=== PATIENT | female | born 1945 | race Caucasian/White ===

== ENCOUNTER 2020-02-14 10:40 | Inpatient (IN) | payer MEDICARE, OTHER ==
[2020-02-14] MEDS ORDERED: COZAAR50 MG PO (12:30)
[2020-02-14] MEDS ORDERED: COZAAR100 MG PO (12:30)
[2020-02-14] MEDS ORDERED: ZYRTEC10 MG PO (12:33)
[2020-02-14] MEDS ORDERED: VENTOLIN HFA [SP8 GM (12:33)
[2020-02-14] MEDS ORDERED: ALDACTONE25 MG PO (12:35)
[2020-02-14] MEDS ORDERED: XARELTO20 MG PO (12:35)
[2020-02-14] MEDS ORDERED: ADVAIR 250-501 EAC1 INH (12:36)
[2020-02-14] MEDS ORDERED: SYNTHROID112 MCG PO (12:37)
[2020-02-14] MEDS ORDERED: NASONEX NASAL S17 GM (12:38)
[2020-02-14] MEDS ORDERED: FLOVENT DISKU100 MCG INH (12:39)
[2020-02-14] MEDS ORDERED: COLACE100 MG PO (12:39)
[2020-02-14] MEDS ORDERED: PROPAFENONE HC225 MG (12:39)
[2020-02-14 12:42] VITALS: BP 136/69; BMI 30.1
--- NOTE | 2020-02-14 13:20 | NUR ---
NURSE CALLED EARL ARMSTRONG AND GAVE HER PASSCODE. NURSE EXPLAINED ALL UNIT DETAILS DURING ADMISSION PROCESS PRIOR TO HER LEAVING.
--- NOTE | 2020-02-14 15:49 | NUR ---
PT ARRIVED TO HALF-WAY UNIT PER FAMILY FOR PRIMARY CARE PHYSICIAN. PT IS HAVING AUDITORY AND VISUAL HALLUCINATIONS. PT IS PARANOID THINKING FAMILY IS POISONING HER. DAUGHTER EARL ARMSTRONG GAVE CONSENT. PT WAS A VOLUNTARY ADMISSION. PT IS AMBULATORY. CALM AND COOPERATIVE WITH STAFF. PT CODE NUMBER IS 3701. PS IS ON DROPLET PRECAUTIONS PENDING SARS-19 RESULTS. WILL CONT TO MONITOR.
--- NOTE | 2020-02-14 16:33 | NUR ---
DAUGHTER BROUGHT MORE CLOTHES AND SHOES FOR PT. EXTRA ITEMS WILL BE LOGGED AND PLACED INTO STORAGE. REFER TO BELONGINGS SHEET.
[2020-02-14 19:57] VITALS: BP 163/69
--- NOTE | 2020-02-14 21:58 | NUR ---
B.) PT IS ALERT AND ORIENTED TO SELF AND PLACE. SHE IS CALM AND COOPERATIVE WITH STAFF. SHE IS SELF ISOLATING AT THIS TIME. SHE IS ABLE TO AMBUALTE ON HER OWN WITHOUT ASSIT. I.) PROVIDED PM MEDICATIONS PRESCRIBED. REDIRECT NEEDED. R.) COMPLIANT WITH ALL MEDICATIONS. EASY TO REDIRECT. P.) WILL CONTINUE TO MONITOR.
[2020-02-15 06:27] LABS: BILIRUBIN NEGATIVE (NEGATIVE); GLUCOSE NEGATIVE (NEGATIVE); KETONE NEGATIVE (NEGATIVE); NITRITE NEGATIVE (NEGATIVE); UROBILINOGEN NORMAL (NORMAL)
[2020-02-15 07:02] LABS: BASOPHILS 0.9 % (0-2); EOSINOPHILS 3.9 % (0-7); HEMATOCRIT 37.1 % (36.0-48.0); HEMOGLOBIN 11.9 g/dL (12-16); IMMATURE GRANULOCYTES 0.3 % (0-5); LYMPHOCYTES 55.1 % (15-50); MCH 30.1 pg (26.0-34.0); MCHC 32.1 g/dL (31.0-37.0); MCV 93.7 fL (80.0-100.0); MEAN PLATELET VOLUME 13.9 fL (7.4-10.4); MONOCYTES 13.8 % (2-11); PLATELET COUNT 144 10x3/uL (130-400); RBC 3.96 10x6/uL (4.00-5.40); RDW 14.9 % (11.5-14.5); WBC 3.3 10x3/uL (4.8-10.8)
[2020-02-15 07:53] LABS: CHOL - HDL RATIO 2.7 ratio (2.3-4.1); LDL-HDL RATIO 1.5 ratio (1.5-3.5); THYROID STIMULATING HORMONE 2.55 uIU/mL (0.36-3.74)
[2020-02-15 09:51] VITALS: Wt 72.0 kg
[2020-02-15 10:10] VITALS: BP 123/78
--- NOTE | 2020-02-15 14:05 | NUR ---
The patient has paranoid thoughts, she is conscientious about cleanliness, she thinks everything is dirty and bad even if she sees staff disinfect an area. She doesn't trust anyone. She is interacting with three other patient's today and she tries to be helpful with other patient's. She ambulates independently. Provide prescribed meds. The patient is compliant with meds. She has not mentioned any hallucinations today. She has not shown aggression. Provide prescribed meds. The patient is compliant with meds. Continue POC.
[2020-02-15 20:00] VITALS: BP 188/65
--- NOTE | 2020-02-15 22:28 | NUR ---
B.) PT IS ALERT AND ORIENTED TO SELF AND PLACE. SHE IS RECEIVED IN THE DAYROOM SOCIALIZING WITH PEERS. SHE IS OBSESSIVE AT TIMES ABOUT HER ENVIORNMENT. I.) PROVIDED PM MEDICATIONS PRESCRIBED. REDIRECT NEEDED. R.) COMPLIANT WITH ALL MEDICATIONS. EASY TO REDIRECT. P.) WILL CONTINUE TO MONITOR.
--- NOTE | 2020-02-16 07:39 | NUR ---
The patient is awake and alert, she is pleasant, she continues to have paranoia and she is worried about cleanliness. She ambulates, toilets, and feeds herself. She is interactive with staff and peers. Provide prescribed meds. Monitor her mood and behavior. Continue POC.
[2020-02-16 09:09] VITALS: BP 118/73
--- NOTE | 2020-02-16 09:45 | NUR ---
The patient requested to floss her teeth, she is quite concerned with cleanliness.
--- NOTE | 2020-02-16 11:30 | NUR ---
The patient got me to the side and she told me that she has a lot of problem with constipation and she usually uses a glycerin suppository every morning and about every four days she uses exlax. She says she also has hemorrhoids but says the glycerin suppository helps so she doesn't have to strain. She admits she does not eat any fruit or vegetables. Text Vilma Whitaker and let her be aware, she said to order the glycerin suppositories.
[2020-02-16 20:00] VITALS: BP 144/59
--- NOTE | 2020-02-16 20:01 | NUR ---
RECEIVED IN DAYROOM. SITTING IN A CHAIR WITH PEERS AT HER SIDE. CALM AND COOPERATIVE WITH CARE AND ASSESSMENT. NO SIGNS OF HALLUCINATIONS OR PARANOIA AT THIS TIME. REDIRECT AND REORIENT NEEDED. CONTINUES TO SIT CALMLY IN DAYROOM. CONTINUE PLAN OF CARE.
[2020-02-17 09:01] VITALS: BP 168/65
--- NOTE | 2020-02-17 09:18 | NUR ---
SW SPOKE WITH PT'S DTR EARL AND SHE DECLINED PT CHOICE FORM. PT WILL BE RETURNING TO HER HOME WHEN DISCHARGED.
--- NOTE | 2020-02-17 17:02 | NUR ---
PT SITTING IN DAYROOM WITH PEERS. AWAKE AND ALERT TO PERSON, PLACE, AND TIME. CALM AND COOPERATIVE WITH ASSESSMENT AT THIS TIME. PRESCRIBED MEDS PROVIDED ORDERED. MED COMPLIANT. NO BEHAVIORS NOTED AT THIS TIME. WILL CPOC.
--- NOTE | 2020-02-17 19:42 | NUR ---
RECEIVED IN DAYROOM. SITTING IN A CHAIR WITH PEERS AT HER SIDE. CALM AND COOPERATIVE WITH CARE AND ASSESSMENT. NO SIGNS OF HALLUCINATIONS OR PARANOIA. REDIRECT AND REORIENT NEEDED.CONTINUES TO SIT CALMLY IN DAYROOM. CONTINUE PLAN OF CARE.
[2020-02-17 20:12] VITALS: BP 176/66
[2020-02-18 09:37] VITALS: BP 156/100
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
--- NOTE | 2020-02-18 12:15 | NUR ---
PT SITTING AT DINING TABLE EATING LUNCH WITH PEERS. ASSESSMENT COMPLETED. NO BEHAVIORS NOTED AT THIS TIME. PRESCRIBED MEDS PROVIDED ORDERED. MED COMPLIANT. WILL CPOC.
[2020-02-18 20:43] VITALS: BP 189/65
--- NOTE | 2020-02-18 21:21 | NUR ---
RECEIVED IN DAYROOM. SITTING IN A CHAIR WITH PEERS AT HER SIDE. CALM AND COOPERATIVE WITH CARE AND ASSESSMENT. NO SIGNS OF HALLUCINATIONS. REDIRECT AND REORINET NEEDED. IN BEDROOM GETTING READY FOR BED AT THIS TIME. CONTINUE PLAN OF CARE.
[2020-02-19 09:10] VITALS: BP 140/68
--- NOTE | 2020-02-19 12:00 | NUR ---
RECEIVED IN HALLWAY OUTSIDE OF NURSES STATION. CALM AND COOPERATIVE WITH CARE AND ASSESSMENT. CRYING AT TIMES. DEPRESSED. REDIRECT AND REORIENT NEEDED. EATING AT THIS TIME. CONTINUE PLAN OF CARE.
--- NOTE | 2020-02-19 14:24 | NUR ---
NUTRITION FOLLOW UP: COMMENTS: Patient has been eating okay. PO intake could stand to improve some. Patient has not had a BM recorded since admit and has a history of chronic constipation. Patient is able to feed herself per MD. DIET: Regluar Diet PO INTAKE: 51% avg for last 9 meals WEIGHT: 157 lbs on 02/15 BM: None recorded at this time SIG MEDS: Synthroid, Glycerin, Colace, Spironolactone SIG LABS: No new sig labs RECOMMENDATIONS: -Continue current diet as tolerated -Offer nutritional supplements if po intake avg becomes < 50 % for meals
--- NOTE | 2020-02-19 14:35 | PN ---
PATIENT:SHERI DILL MEDICAL RECORD: [id number] LOCATION:[facility] ADMISSION DATE: 02/14/20 PROGRESS NOTE DATE OF SERVICE: 02/18/2020 SUBJECTIVE: The patient's case was discussed with staff. She has no new complaint. OBJECTIVE: The patient is quite impaired cognitively. She is also showing evidence of a fairly severe dementia. ASSESSMENT AND PLAN: The patient's dose of Lexapro will be increased. Her long-term prognosis is guarded. Supportive and educational interventions were made. TRANSINT:[id number] Voice Confirmation ID: [id number] DOCUMENT ID: [id number] LEN MATUTE MD at 1435 CC: [id number] DICTATION DATE: 02/18/20 1532 SAMPLE FINISHER: 02/18/20 2349 ADM IN [place] [place] [address]
[2020-02-19 20:37] VITALS: BP 147/68
--- NOTE | 2020-02-20 00:32 | NUR ---
B) patient is alert and oriented to person, place and time, calm and cooperative, I) Administered scheduled medications as ordered, monitored for needs and wants R) Mediation compliant, pleasnat and friendly P) Continue plan of care.
--- NOTE | 2020-02-20 08:51 | NUR ---
The patient c/o bilateral knee pain. She rates her pain 8/10. She requests Tylenol, see MAR. The patient is alert and awake, she has poor short term memory and poor insight into her situation. She denies SI or HI, have not noted any hallucinations or delusions at this time. She interacts with staff and other patients. Provide prescribed meds. The patient is compliant with meds. Continue POC.
[2020-02-20 09:22] VITALS: BP 162/64
--- NOTE | 2020-02-20 12:16 | PN ---
PATIENT:SHERI DLIL MEDICAL RECORD: [id number] LOCATION:[facility]112 ADMISSION DATE: 02/14/20 PROGRESS NOTE DATE OF SERVICE: 02/19/2020 SUBJECTIVE: The patient's case was discussed with staff. She has no new complaint. OBJECTIVE: The patient has had no psychotic symptoms. She is calmer and sleeping reasonably well. ASSESSMENT: 1. Dementia. 2. Major depression. PLAN: The patient has shown improvement in her psychotic symptoms. It will take a while for her mood symptoms to improve. Her daughter is making arrangements for her to come and live with her. I anticipate she can be discharged soon. TRANSINT:[id number] Voice Confirmation ID: [id number] DOCUMENT ID: [id number] LEN MATUTE MD at 1216 CC: [id number] DICTATION DATE: 02/19/20 1508 SHOTBLAST OPERATOR: 02/20/20 0025 ADM IN [id number] [place] [address]
[2020-02-20] MEDS ORDERED: LEXAPRO20 MG PO (12:41)
[2020-02-20] MEDS ORDERED: NAMENDA5 MG PO (12:41)
[2020-02-20] MEDS ORDERED: SEROQUEL25 MG PO (12:41)
--- NOTE | 2020-02-20 17:05 | PN ---
PATIENT:SHERI DILL MEDICAL RECORD: [id number] LOCATION:[facility] ADMISSION DATE: 02/14/20 PROGRESS NOTE DATE OF SERVICE: 02/20/2020 SUBJECTIVE: The patient's case was discussed with staff. She has no new complaint. OBJECTIVE: The patient has had no further psychotic symptoms. She has mild symptoms of cognitive impairment, but they are present. She is distressed by the activities that she observes in the day room. She would like to go home. ASSESSMENT: 1. Dementia. 2. Major depression. PLAN: The patient will be transitioned out of the hospital today. Her long-term prognosis is guarded. Both supportive and educational interventions were made. I do not see evidence of dangerousness and follow up will be with her primary care physician. TRANSINT:[id number] Voice Confirmation ID: [id number] DOCUMENT ID: [id number] LEN MATUTE MD at 1705 CC: [id number] DICTATION DATE: 02/20/20 1241 STAKES PLAYER: 02/20/20 1618 ADM IN [facility] [address] [id number]
--- NOTE | 2020-02-20 18:05 | NUR ---
The patient's daughter is here to fruit or nut picker her Mother. Provided them verbal and written instructions regarding appointments, counseling, and medications to the patient and her daughter. All of her belongings are accounted and provided to the patient. Faxed all paperwork to Dr. Valentin's office. The patient is now discharged from [facility].
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
== END 2020-02-20 18:10 | disposition home or self-care (01) | DRG 884 ==
LOC: D.PSYCH 10:40
PROVIDERS: ADMIT Psychiatry & Neurology Psychiatry; ATTEND Psychiatry & Neurology Psychiatry
DX: F03.90 Unspecified dementia, unspecified severity, without behavioral disturbance, psychotic disturbance, mood disturbance, and anxiety (principal); R44.0 Auditory hallucinations; F32.9 Major depressive disorder, single episode, unspecified; F41.9 Anxiety disorder, unspecified; M19.90 Unspecified osteoarthritis, unspecified site; J45.909 Unspecified asthma, uncomplicated; I48.91 Unspecified atrial fibrillation; K21.9 Gastro-esophageal reflux disease without esophagitis; I10 Essential (primary) hypertension; E03.9 Hypothyroidism, unspecified; G47.33 Obstructive sleep apnea (adult) (pediatric); J30.9 Allergic rhinitis, unspecified; M17.11 Unilateral primary osteoarthritis, right knee; K59.00 Constipation, unspecified; D64.9 Anemia, unspecified

== ENCOUNTER 2020-03-31 14:21 | Inpatient (IN) | payer MEDICARE, OTHER ==
[~2020-03-31] VITALS: Ht 154.9 cm; Wt 70.5 kg
[~2020-03-31 14:21] MED LIST: ADVAIR 250-501 EAC1 INH; ALDACTONE25 MG PO; COLACE100 MG PO; COZAAR100 MG PO; COZAAR50 MG PO; FLOVENT DISKU100 MCG INH; LEXAPRO20 MG PO; NAMENDA5 MG PO; NASONEX NASAL S17 GM; PROPAFENONE HC225 MG PO; SEROQUEL25 MG PO; SYNTHROID112 MCG PO; VENTOLIN HFA [SP8 GM; XARELTO20 MG PO; ZYRTEC10 MG PO
[2020-03-31 17:35] LABS: UDS - AMPHET NEGATIVE QUAL (NEGATIVE); UDS - BARB NEGATIVE QUAL (NEGATIVE); UDS - BENZO NEGATIVE QUAL (NEGATIVE); UDS - COCAINE NEGATIVE QUAL (NEGATIVE); UDS - OPIATE NEGATIVE QUAL (NEGATIVE); UDS - PCP NEGATIVE QUAL (NEGATIVE); UDS - THC NEGATIVE QUAL (NEGATIVE)
--- NOTE | 2020-03-31 17:40 | NUR ---
URINE SPEC COLLECTED, LABELED AT BS AND SENT TO LAB
[2020-03-31 17:41] LABS: BILIRUBIN NEGATIVE (NEGATIVE); KETONE NEGATIVE (NEGATIVE); NITRITE NEGATIVE (NEGATIVE); UROBILINOGEN NORMAL mg/dL (< 2)
[2020-03-31 17:42] LABS: WHITE CELLS - URINE 0-5 HPF (0-4)
[2020-03-31 18:52] LABS: BASOPHILS 0.1 % (0-2); EOSINOPHILS 0.3 % (0-7); HEMATOCRIT 41.1 % (36.0-48.0); HEMOGLOBIN 13.9 g/dL (12-16); IMMATURE GRANULOCYTES 0.1 % (0-5); LYMPHOCYTES 15.8 % (15-50); MCHC 33.8 g/dL (31.0-37.0); MCV 91.7 fL (80.0-100.0); MEAN PLATELET VOLUME 13.7 fL (7.4-10.4); MONOCYTES 10.4 % (2-11); NEUTROPHILS 73.3 % (40-80); PLATELET COUNT 138 10x3/uL (130-400); RBC 4.48 10x6/uL (4.00-5.40); RDW 14.7 % (11.5-14.5); WBC 6.7 10x3/uL (4.8-10.8)
[2020-03-31 20:13] VITALS: BP 146/59
[2020-03-31 20:34] LABS: INR 1.54 (0.85-1.17); PROTIME 18.3 SECONDS (11.6-15.0)
[2020-03-31 20:59] LABS: ALBUMIN 3.6 g/dL (3.4-5.0); ALKALINE PHOSPHATASE 70 U/L (30-120); ALT (SGPT) 23 U/L (10-68); BILIRUBIN - TOTAL 0.72 mg/dL (0.2-1.3); CALC OSMOLALITY 272 mosm/kg (275-300); CALCIUM 9.6 mg/dL (8.5-10.1); CARBON DIOXIDE 28.6 mmol/L (21.0-32.0); CHLORIDE - SERUM 105 mmol/L (98-107); CKMB 0.9 U/L (0.0-3.6); CREATINE KINASE 81 UL (21-215); CREATININE - SERUM 1.1 mg/dL (0.6-1.3); GLUCOSE 101 mg/dL (74-106); MAGNESIUM - SERUM 1.7 mg/dL (1.8-2.4); POTASSIUM - SERUM 4.4 mmol/L (3.5-5.1); PROTEIN - SERUM 6.7 g/dL (6.4-8.2); SODIUM 136 mmol/L (136-145); THYROID STIMULATING HORMONE 0.35 uIU/mL (0.36-3.74); TROPONIN-I < 0.017 ng/mL (0.000-0.060); UREA NITROGEN 16 mg/dL (7-18); eGFR NON AFRICAN AMERICAN 51 mL/min (90-120)
--- NOTE | 2020-03-31 21:07 | NUR ---
BS REPORT TO ALIS WALKER
[2020-03-31 22:01] VITALS: BP 131/54
--- NOTE | 2020-03-31 23:28 | NUR ---
PILLOW AND ANOTHER BLANKET PROVIDED FOR COMFORT. CALL LIGHT WITHIN REACH. NO SIGNS DISTRESS NOTED. WILL CONTINUE TO MONITOR.
[2020-04-01] VITALS (9 sets, daily range): BP systolic 93–126; BP diastolic 36–53; Ht 154.9 cm; Wt 70.5 kg
--- NOTE | 2020-04-01 00:45 | NUR ---
PT AMBULATED TO RESTROOM X1 ASSIST, C/O PAIN 8/10 TO RIGHT SIDE RIBS.
--- NOTE | 2020-04-01 01:50 | NUR ---
PT RESTING IN BED, SUPINE POSITION. REPORTS PAIN IS DECREASING AND THANKS NURSE FOR PAIN MEDICATION. WILL CONTINUE TO MONITOR. CALL LIGHT IS WITHIN REACH. NO SIGNS DISTRESS NOTED.
[2020-04-01 06:27] LABS: BASOPHILS 0.6 % (0-2); EOSINOPHILS 2.2 % (0-7); HEMOGLOBIN 12.1 g/dL (12-16); IMMATURE GRANULOCYTES 0.2 % (0-5); LYMPHOCYTES 33.7 % (15-50); MCHC 32.7 g/dL (31.0-37.0); MCV 91.8 fL (80.0-100.0); MEAN PLATELET VOLUME 13.2 fL (7.4-10.4); MONOCYTES 15.9 % (2-11); NEUTROPHILS 47.4 % (40-80); PLATELET COUNT 149 10x3/uL (130-400); RBC 4.03 10x6/uL (4.00-5.40); RDW 14.9 % (11.5-14.5)
[2020-04-01 06:50] LABS: INR 1.35 (0.85-1.17); PROTIME 16.5 SECONDS (11.6-15.0)
--- NOTE | 2020-04-01 06:52 | NUR ---
PT REPOSITIONED TOWARDS LEFT SIDE X2 ASSIST AT THIS TIME.
[2020-04-01 07:00] LABS: ANION GAP 10.7 mmol/L (8-16); CALCIUM 9.4 mg/dL (8.5-10.1); CARBON DIOXIDE 27.5 mmol/L (21.0-32.0); CREATININE - SERUM 0.9 mg/dL (0.6-1.3); MAGNESIUM - SERUM 1.8 mg/dL (1.8-2.4); PHOSPHOROUS 3.5 mg/dL (2.5-4.9); POTASSIUM - SERUM 4.2 mmol/L (3.5-5.1)
--- NOTE | 2020-04-01 07:20 | NUR ---
REPORT TO ALIS GRANADOS
--- NOTE | 2020-04-01 07:30 | NUR ---
ASSUMED CARE OF PT. A/OX3 SLIGHTLY FORGETFUL. C/O RIGHT LATERAL RIB PAIN. WILL MED WITH PRN ORDERS. SKIN W/D/P. RESP EVEN/UNALBORED. REPOSITIONED FOR COMFORT AND BREAKFAST SERVED/APPETITE GOOD
--- NOTE | 2020-04-01 13:11 | NUR ---
REPORT TO ALIS BENTLEY
--- NOTE | 2020-04-01 13:23 | NUR ---
ADMIT TO ROOM #2212, CONDITION STABLE
[2020-04-01] MEDS ORDERED: NAMENDA10 MG PO (15:16)
--- NOTE | 2020-04-01 18:04 | NUR ---
PAGE TO DR. BARAJAS. ELEVATED ST WAVE ON MONITOR
--- NOTE | 2020-04-01 18:33 | NUR ---
CALL TO DR BARAJAS AT NUMBER PROVIDED. ORDERS RECIEVED AND INITIATED. PATIENT IS NOT HAVING ANY PAIN AT PRESENT. SHE IS NOT IN ANY DISTRESS. EKG TO BE SCANNED.
[2020-04-01 19:41] LABS: CREATINE KINASE 73 UL (21-215); LDH 159 U/L (81-234)
[2020-04-01 19:52] LABS: TROPONIN-I < 0.017 ng/mL (0.000-0.060)
--- NOTE | 2020-04-01 20:00 | NUR ---
PT RESTING IN BED TALKING TO HER GRANDDAUGHTER. ASSISTED HER TO THE BATHROOM WITH MINIMAL ASSISTANCE. SHE DENIES PAIN OR NEEDS. SHE IS ALERT AND ORIENTED BUT FORGETFUL. SHE WANTS NEWSPAPER TO COVER HER BOTTOM WINDOW. SHE STATES SHE IS AFRAID THERE IS SOMEONE LOOKING AT HER. CLOSED THE BLINDS AND TAPED NEWSPAPER OVER THE LOWER WINDOWS. SHE WAS VERY THANKFUL. GAVE HER SOME FRESH WATER. DEIRDRE ALARM ON FOR SAFETY. VSS. BED LOW AND CALL LIGHT WITHIN REAC.
[2020-04-02 00:21] VITALS: BP 113/82
[2020-04-02 04:00] VITALS: BP 119/51
[2020-04-02 09:02] VITALS: BP 104/57
[2020-04-02 11:51] VITALS: BP 128/55
--- NOTE | 2020-04-02 17:15 | NUR ---
PATIENT IN BED. DENIES NEEDS OR PAIN. BED LOW POSITION, CALL LIGHT IN REACH. FREE FROM SIGNS OF DISTRESS. WILL CONTINUE TO MONITOR.
[2020-04-02 17:50] VITALS: BP 96/52
[2020-04-02 20:00] VITALS: BP 112/41
[2020-04-03] VITALS: BP 108/53
[2020-04-03 04:00] VITALS: BP 99/31
[2020-04-03 09:03] VITALS: BP 106/54
[2020-04-03 13:59] VITALS: BP 115/46
--- NOTE | 2020-04-03 15:24 | MORECARE ---
CASE MANAGEMENT DISCHARGE SUMMARY PATIENT: SHERI DILL UNIT: [id number] ADM DATE: 04/01/20 AGE: 75 : 47 SEX: F ROOM/BED: D.2212 AUTHOR: GILA BOO PHYSICIAN: REFERRING PHYSICIAN: TALHA BARAJAS MD DATE OF SERVICE: 04/03/20 Discharge Plan Patient Name: SHERI DILL Facility: [facility]:[place] : 1945 Planned Disposition: Anticipated Discharge Date: Discharge Date: Expected LOS: Initial Reviewer: [email or web address] Initial Review Date: 04/03/2020 Generated: 04/03/20 4:23 pm Comments DCP- Discharge Planning Updated by [email or web address]: Gloria Adams on 04/03/20 2:[address] Patient Name: SHERI DILL Admission Status: ER Accout number: [id number] Admission Date: 04-01-2020 : 1945 Admission Diagnosis:CHEST PAIN, UNSPECIFIED Attending: ANGEL Current LOS: 2 Anticipated DC Date: Planned Disposition: Primary Insurance: MEDICARE A & B Discharge Planning Comments: CM met with patient at bedside after explaining CM role and obtaining verbal consent. CM discussed availability / needs of home health, REHAB and medical equipment. DENIES DISCHARGE NEEDS. 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 PATIENT TRYING TO CALL DAUGHTER TO MASTER CONTROL ENGINEER FOR DISCHARGE POTENTIAL TODAY. Stock Roller: Gloria Adams DCPIA - Discharge Planning Initial Assessment Updated by [email or web address]: Gloria Adams on 04/03/20 3:17 pm * Is the patient Alert and Oriented? Yes * PCP [facility] * Pharmacy [facility] * Preadmission Environment Home with Family * ADLs Independent * Other Equipment NONE * Community resources currently utilized None * Additional services required to return to the preadmission environment? No * Can the patient safely return to the preadmission environment? Yes * Has this patient been hospitalized within the prior 30 days at any hospital? No Patient Name: SHERI DILL Page [id number] at 1524 All edits/amendments must be made on the electronic document DICTATION DATE: 04/03/201522 MOLASSES COLORING OPERATOR: ZAK 04/03/20 152 RPT#: [id number] DC DATE: STATUS: ADM IN [facility] [address] [place] [address] END OF REPORT
--- NOTE | 2020-04-03 16:26 | NUR ---
DISCHARGE TEACHING COMPLETE. NO FURTHER QUESTIONS. IV CATH REMOVED, CATH TIP INTACT. WAITING ON RIDE TO ARRIVE.
--- NOTE | 2020-04-03 17:33 | NUR ---
PATIENT LEFT FLOOR VIA WHEELCHAIR.
--- NOTE | 2020-04-06 09:14 | MORECARE ---
CASE MANAGEMENT DISCHARGE SUMMARY PATIENT: SHERI DILL UNIT: [id number] ADM DATE: 04/01/20 AGE: 75 : 47 SEX: F ROOM/BED: D.2212 AUTHOR: GILA BOO PHYSICIAN: REFERRING PHYSICIAN: TALHA BARAJAS MD DATE OF SERVICE: 04/06/20 Discharge Plan Patient Name: SHERI DILL Facility: [facility]:[place] : 1945 Planned Disposition: Anticipated Discharge Date: Discharge Date: 04/03/2020 Expected LOS: Initial Reviewer: [email or web address] Initial Review Date: 04/03/2020 Generated: 04/06/20 10:13 am Comments DCP- Discharge Planning Updated by [email or web address]: Gloria Adams on 04/03/20 2:[address] Patient Name: SHERI DILL Admission Status: ER Accout number: [id number] Admission Date: 04-01-2020 : 1945 Admission Diagnosis:CHEST PAIN, UNSPECIFIED Attending: ANGEL Current LOS: 2 Anticipated DC Date: Planned Disposition: Primary Insurance: MEDICARE A & B Discharge Planning Comments: CM met with patient at bedside after explaining CM role and obtaining verbal consent. CM discussed availability / needs of home health, REHAB and medical equipment. DENIES DISCHARGE NEEDS. 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 PATIENT TRYING TO CALL DAUGHTER TO WARP DYEING VAT TENDER FOR DISCHARGE POTENTIAL TODAY. Plasterer Foreman: Gloria Adams DCPIA - Discharge Planning Initial Assessment Updated by [email or web address]: Gloria Adams on 04/03/20 3:17 pm * Is the patient Alert and Oriented? Yes * PCP [facility] * Pharmacy [facility] * Preadmission Environment Home with Family * ADLs Independent * Other Equipment NONE * Community resources currently utilized None * Additional services required to return to the preadmission environment? No * Can the patient safely return to the preadmission environment? Yes * Has this patient been hospitalized within the prior 30 days at any hospital? No Last DP export: 04/03/20 2:24 p Patient Name: SHERI DILL Page [phone] at 0914 All edits/amendments must be made on the electronic document DICTATION DATE: 04/06/20912 ECONOMICS CONSULTANT: ZAK 04/06/20912 RPT#: [id number] DC DATE:04/03/20 STATUS: DIS IN [facility] [address] [place] [address] END OF REPORT
== END 2020-04-03 17:34 | disposition home or self-care (01) | DRG 200 ==
LOC: D.ER 14:21 → D.MS 22:08 → D.EDHOLD 22:08 → OBSVTIME 22:08 → D.MS 04-01 12:26
PROVIDERS: Emergency Medicine; Family Medicine; ADMIT Emergency Medicine; ATTEND Emergency Medicine
DX: S27.0XXA Traumatic pneumothorax, initial encounter (principal); S22.49XA Multiple fractures of ribs, unspecified side, initial encounter for closed fracture; W19.XXXA Unspecified fall, initial encounter; I48.91 Unspecified atrial fibrillation; I10 Essential (primary) hypertension; I25.10 Atherosclerotic heart disease of native coronary artery without angina pectoris; F03.90 Unspecified dementia, unspecified severity, without behavioral disturbance, psychotic disturbance, mood disturbance, and anxiety; E03.9 Hypothyroidism, unspecified; Z87.891 Personal history of nicotine dependence

== ENCOUNTER 2020-08-11 21:26 | Inpatient (IN) | payer MEDICARE ==
[~2020-08-11] VITALS: Ht 154.9 cm; Wt 75.7 kg
[~2020-08-11 21:26] MED LIST changes: +NAMENDA10 MG PO
[2020-08-11 22:06] LABS: BILIRUBIN NEGATIVE (NEGATIVE); KETONE NEGATIVE (NEGATIVE); NITRITE NEGATIVE (NEGATIVE); UROBILINOGEN NORMAL mg/dL (< 2)
[2020-08-11 22:44] VITALS: BP 131/55
[2020-08-11 23:46] LABS: HEMATOCRIT 37.9 % (36.0-48.0); HEMOGLOBIN 12.5 g/dL (12-16); LYMPHOCYTES 44.6 % (15-50); MCH 30.3 pg (26.0-34.0); MEAN PLATELET VOLUME 12.2 fL (7.4-10.4); NEUTROPHILS 39.7 % (40-80); PLATELET COUNT 134 10x3/uL (130-400); RBC 4.12 10x6/uL (4.00-5.40); RDW 14.3 % (11.5-14.5); WBC 4.7 10x3/uL (4.8-10.8)
[2020-08-12 00:26] LABS: ALBUMIN 3.7 g/dL (3.4-5.0); ANION GAP 13.2 mmol/L (8-16); BILIRUBIN - TOTAL 0.37 mg/dL (0.2-1.3); CALCIUM 9.3 mg/dL (8.5-10.1); CARBON DIOXIDE 25.3 mmol/L (21.0-32.0); CHOL - HDL RATIO 2.9 ratio (2.3-4.1); CREATININE - SERUM 0.9 mg/dL (0.6-1.3); LDL-HDL RATIO 1.7 ratio (1.5-3.5); POTASSIUM - SERUM 4.5 mmol/L (3.5-5.1); PROTEIN - SERUM 6.8 g/dL (6.4-8.2); THYROID STIMULATING HORMONE 1.38 uIU/mL (0.36-3.74)
--- NOTE | 2020-08-12 01:32 | NUR ---
PT PREOCCUPIED WITH BLODD DRAW SITE RELATING IT IS GETTING BIGGER. ICE PACK GIVEN TO PATIENT HOWEVER SHE DOES NOT LEAVE IT ON THE SITE. SMALL AMOUNT OF SWELLING NOTED. TEARFUL IN HER ROOM. ATIVAN 0.5MG PO ADMINISTERED FOR ANXIETY.
[2020-08-12] MEDS ORDERED: SYSTANE NIGHTT3.5 GM EACH EYE (02:20)
[2020-08-12] MEDS ORDERED: FLUTICASONE PRO16 GM NASAL (02:20)
[2020-08-12] MEDS ORDERED: RISPERDAL1 MG PO (02:21)
[2020-08-12] MEDS ORDERED: DETROL LA2 MG PO (02:24)
[2020-08-12] MEDS ORDERED: MOMETASONE EACH EAR (02:28)
[2020-08-12] MEDS ORDERED: ADVAIR 100/50 (02:29)
[2020-08-12] MEDS ORDERED: VITAMIN B COMPLEX (02:42)
[2020-08-12] MEDS ORDERED: [UNRECOGNIZED DRUG - OTHER] (02:44)
[2020-08-12] MEDS ORDERED: [UNRECOGNIZED DRUG - OTHER] (02:44)
[2020-08-12] MEDS ORDERED: CENTRUM SILVER1 EAC3 PO (02:45)
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
--- NOTE | 2020-08-12 11:19 | NUR ---
PT DAUGHTER CALLED JEANINE KEYES. PASSCODE GIVEN TO DAUGHTER AT THIS TIME. SHE WANTED TO KNOW HOW SHE WAS DOING AT THIS TIME. NURSE GAVE AN UPDATE. SHE WAS DOING WELL, NOT ANXIOUS, ORIENTED, WANTING MORE COFFEE, NO BEHAVIORS AT THIS TIME. SHE STATED SHE WOULD BRING HER PUZZLE BOOK LATER TODAY AND TELL HER SHE SAID TERESA. NURSE VERBALIZIED UNDERSTANDING AT THIS TIME.
[2020-08-12 13:36] VITALS: Ht 154.9 cm; Wt 75.7 kg
--- NOTE | 2020-08-12 17:50 | NUR ---
PT SITTING IN CHAIR READING AT THIS TIME. PT IS CONFUSED AND ALERT TO PERSON, TIME AND SITUATION. PT IS CALM AND COOPERATIVE WITH STAFF. NO AGRESSION NOTED. NO TEARFUL NOTED. PT IS COMPLIANT WITH MEDS, VITALS AND ASSESSMENTS. PT COMPLIANT AND CONTS ON DROPLET PRECAUTIONS. AWAITING SARS-19 RESULTS. AMBULATES. CAN MAKE NEEDS KNOWN. WILL CONT PLAN OF CARE.
[2020-08-12 20:00] VITALS: BP 169/57
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
[2020-08-13 07:15] LABS: RAPID PLASMA REAGIN Non Reactive (Non Reactive)
--- NOTE | 2020-08-13 09:27 | PSY ---
PATIENT NAME:SHERI DILL MEDICAL RECORD: [id number] : 49 LOCATION:[facility] ADMISSION DATE: 08/11/20 ACCOUNT: [id number] PSYCHIATRIC EVALUATION DATE OF EVALUATION: 08/12/20 IDENTIFYING DATA: The patient is 75 years old and she is admitted to the hospital secondary to aggression and hallucinations. CHIEF COMPLAINT: "There is nothing wrong with me." HISTORY OF PRESENT ILLNESS: The patient has a history of dementia and is referred to us because of some aggressive behavior. She has not been taking her medications. She has been showing evidence of delusions and hallucinations as well as aggression with her family. She does live at home with family. PAST MEDICAL HISTORY: Significant for hypertension, atrial fibrillation, hyperlipidemia, and osteoarthritis. PAST PSYCHIATRIC HISTORY: Significant for dementia and she was hospitalized here in February of 2020. She does not recall being hospitalized here. SOCIAL HISTORY: The patient is single. She has been in the past. She has no history of drug or alcohol abuse and has never been a cigarette smoker. MENTAL STATUS EXAMINATION: The patient is awake, alert and oriented to person and place, but not to time or situation. Her mood is flat. Her affect is constricted. Thought processes are disorganized and there is delusional content in it. She denies that she would seek to harm herself or others. She denies hallucinations and delusions, but she clearly is having delusional thought content. She has no history of trauma, physical or sexual. ASSESSMENT: AXIS I: Major neurocognitive disorder of the Alzheimer's type. AXIS II: None. AXIS III: Hypertension, arthritis, atrial fibrillation, hypertension, hypothyroidism, and obstructive sleep apnea. AXIS IV: Moderate. AXIS V: Global assessment of functioning is 30. PLAN: At this time, the patient is admitted to the hospital for a comprehensive medical, psychological, and social evaluation. She will be treated with both mood stabilizing and memory enhancing medications. Long-term prognosis is guarded and every effort will be made to return her to her family or the least restrictive environment available. TRANSINT:[id number] Voice Confirmation ID: [id number] DOCUMENT ID: [id number] LEN MATUTE MD at 0927 CC: [id number] DICTATION DATE: 08/12/20 1539 QUILL SKINNER: 08/12/20 1547 ADM IN [facility] [address] [id number]
[2020-08-13 09:47] VITALS: BP 143/58
--- NOTE | 2020-08-13 15:32 | NUR ---
PT DAUGHTER EARL CALLED. PASSCODE GIVEN. SHE WANTED TO KNOW HOW THE DOCTOR WAS WORKING. SHE STATED HER DAUGHTER AND WANTED HER MONEY AND SHE WANTED TO MOVE IN WITH STRANGE PEOPLE. SHE HAS CLEANING SERVICES, SHE IS COOKED FOR, HORADING TENDS. NURSE WENT OVER EDUCATION FOR DEMENTIA AND SOME OF THE STAGES AND THINGS IT CAN CAUSE. INSTALLING PARENTAL CONTROLS. SHE VERBALIZIED UNDERSTANDING AND THANKED NURSE. NURSE GAVE ADVIDE TO WAIT THE WEEKEND TO EVAL AND CALL ON MONDAY AND REQUEST A CALL FROM DR. MATUTE.
--- NOTE | 2020-08-13 17:50 | NUR ---
pt sitting in chair reading at this time. pt is disoriented at times. pt is calm and cooperative with staff and peers. pt is paranoid at times. pt med stalls. staff cont to encourage meds. pt is alert to person, place and time. pt did not state the reason for covering windows. pt conts on droplet precautions for SARS-19 while awaiting results. pt does verbalize understanding for wait. can make needs known. ambualates. will cont plan of care.
[2020-08-13 20:00] VITALS: BP 108/52
--- NOTE | 2020-08-13 22:24 | NUR ---
B) Patient is alert and orient to persn, place and time, calm and cooperative this shift, I) Administered scheduled medications as ordered, monitored for safety R) Medication compliant, no hallucinations noted this shift, P) Continue plan of care.
[2020-08-14 09:03] VITALS: BP 123/64
--- NOTE | 2020-08-14 16:53 | NUR ---
PT SITTING AND TALKING TO PEERS AT THIS TIME. PT IS CALM AND COOPERATIVE WITH CARE. PT IS ALERT TO PERSON, PLACE AND TIME. PT IS COMPLIANT WITH MEDS, VITALS AND ASSESSMENTS. PT IS CONFUSED AT TIMES. PT AMBULATES. PT IS STILL PARANOID WITH THINKING PEOPLE ARE LOOKING IN WINDOW. PT TO START ON LINZESS 145 MCG. WILL CONT PLAN OF CARE.
[2020-08-14 20:00] VITALS: BP 103/36
--- NOTE | 2020-08-14 22:21 | NUR ---
PT IS ALERT AND ORIENTED TO SELF, PLACE AND SITUATION. SHE IS RECEIVED IN HER BED. OBSERVANT OF SURROUNDINGS. SHE STATES "WHEN THE LIGHTS ARE OFF I CAN SEE BLUE AND GREEN LIGHTS ALL AROUND MY ROOM." CLOSED BLINDS IN HER ROOM. COMPLIANT WITH ALL HS MEDICATIONS. EASY TO REDIRECT. COOPERATIVE WITH STAFF.
--- NOTE | 2020-08-15 07:59 | NUR ---
The patient is sweet and calm this am on assessment. Asked her if she knew where she was and she said "I used to be where the nursery was." Then I explained to her that she is at [facility] and she said "Oh, I worked at [employer] for 22 years and that's all I know." She has not made any mention about paranoia at this time and she has not shown any aggression. She ambulates, toilets, and feeds herself. Provide prescribed meds, monitor for med compliance and sexually inappropriate behaviors. Continue POC.
[2020-08-15 09:51] VITALS: BP 114/47
--- NOTE | 2020-08-15 11:50 | NUR ---
The patient came out to the lunch cart and she said "I need some coffee." She began pouring it herself and I explained to her that she needs to wait for staff to assist her and she stomped off to her room. Brought the coffee to her room and she said "I don't want it now." I said "Here it is." She said "Well, I'll bring it right back out to you." She came out with the cup of coffee and asked for condiments, took her a powder cream and a liquid cream and she said "I don't want it now." Explained to her that is ok, but we are not playing games.
--- NOTE | 2020-08-15 18:16 | NUR ---
Rec'd patient this am in room. Takes meds whole without difficulty. Has tearful moments at times but likes to visit with staff. Can become easily aggitated.
[2020-08-15 20:00] VITALS: BP 123/54
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
[2020-08-16 08:00] VITALS: BP 103/57
--- NOTE | 2020-08-16 08:45 | NUR ---
The patient is awake and she is alert, she is in a pleasant mood this am and she is not showing any aggression, she has not made any mention about hallucinations or sexually innapropriate behaviors. She ambulates, toilets, and feeds herself. Provide prescribed meds. The patient is compliant with meds. Continue POC.
--- NOTE | 2020-08-16 19:44 | NUR ---
RECEIVED IN HALLWAY OUTSIDE OF NURSES STATION, TALKING ON THE PHONE. CALM AND COOPERATIVE WITH CARE AND ASSESSMENT. NO SIGNS OF AGGRESSION. REDIRECT AND REORIENT NEEDED, RESTING QUIETLY IN A CHAIR IN THE VACA AT THIS TIME. CONTINUE PLAN OF CARE.
--- NOTE | 2020-08-16 19:48 | NUR ---
RECEIVED IN HALLWAY. STANDING AT NURSES STATION TALKING ON THE PHONE. CALM AND COOPERATIVE WITH CARE AND ASSESSMENT. NO SIGNS OF AGGRESSION. REDIRECT AND REORIENT NEEDED. SITTING QUIETLY IN HER BEDROOM AT THIS TIME. CONTINUE PLAN OF CARE.
[2020-08-16 21:02] VITALS: BP 127/66
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
[2020-08-17 08:00] VITALS: BP 126/45
--- NOTE | 2020-08-17 11:59 | NUR ---
Nutrition Follow-up: Diet: Regular PO intake: ~67% average x last 9 meals Last BM: 08/16/20 x 3. Wt: 166# (08/16/20); Admit Wt: 170# (08/12/20) Meds noted: linzess. No new chem labs. Noted -4# weight change since admit. PO intake has been variable since admit. Overall appears to be minimally adequate. Will add Ensure TID with meals. RD will follow-up 08/19/20.
--- NOTE | 2020-08-17 14:13 | PN ---
PATIENT:SHERI DILL MEDICAL RECORD: [id number] LOCATION:[facility] ADMISSION DATE: 08/11/20 PROGRESS NOTE DATE OF SERVICE: 08/13/2020 SUBJECTIVE: The patient's case was discussed with staff. She has no new complaint. OBJECTIVE: The patient denies intent to harm herself or others. She was very paranoid last night and believe that there were people looking in her window. ASSESSMENT: Dementia. PLAN: Current medicines have been reviewed and will be maintained. She is going to be started on Namenda for its memory enhancing properties. TRANSINT:[id number] Voice Confirmation ID: [id number] DOCUMENT ID: [id number] LEN MATUTE MD at 1413 CC: [id number] DICTATION DATE: 08/13/20 1543 PHOTOGRAPHY COLORIST: 08/13/20 1657 ADM IN [place] [id number] [place] [id number]
--- NOTE | 2020-08-17 17:50 | NUR ---
RECEIVED IN PATIENT ROOM. SITTING IN ROOM AND DOING CROSS WORD PUZZLES. CALM AND COOPERATIVE WITH CARE AND ASSESSMENT. NO AGGRESSION. NO SEXUALLY INAPPROPRIATE BEHAVIOR. REDIRECT AND REORIENT NEEDED. EATING AT THIS TIME. CONTINUE PLAN OF CARE.
--- NOTE | 2020-08-17 19:51 | NUR ---
RECEIVED IN BEDROOM. RESTING QUIETLY IN BED WITH EYES CLOSED. CALM AND COOPERATIVE WITH CARE AND ASSESSMENT. NO SIGNS OF AGGRESSION. REDIRECT AND REORIENT NEEDED. CONTINUES TO REST QUIETLY IN BED. CONTINUE PLAN OF CARE,
[2020-08-17 22:19] VITALS: BP 126/51
[2020-08-18 08:00] VITALS: BP 125/43
--- NOTE | 2020-08-18 08:30 | NUR ---
RECEIVED IN PATIENT ROOM. CALM AND COOPERATIVE WITH CARE AND ASSESSMENT. CONFUSED. WANDERS. NO AGGRESSIVE BEHAVIOR. NO SEXUALLY INAPPROPRIATE BEHAVIOR. REDIRECT AND REORIENT NEEDED. EATING BREAKFAST AT THIS TIME. CONTINUE PLAN OF CARE.
--- NOTE | 2020-08-18 15:12 | PN ---
PATIENT:SHERI DILL MEDICAL RECORD: [id number] LOCATION:[facility] ADMISSION DATE: 08/11/20 PROGRESS NOTE DATE OF SERVICE: 08/17/2020 SUBJECTIVE: The patient's case was discussed with staff. She has no new complaint. OBJECTIVE: The patient has had no aggressive behavior. She is sleeping marginally well, but she is eating adequately. She is only partially oriented. She is limited in her insight. I have reviewed current medications and I am going to increase the dose of her Zoloft slightly. TRANSINT:[id number] Voice Confirmation ID: [id number] DOCUMENT ID: [id number] LEN MATUTE MD at 1512 CC: [id number] DICTATION DATE: 08/17/20 1631 HEAD OF ETHICS AND COMPLIANCE: 08/17/20 2304 ADM IN [facility] [address] [place] [address]
--- NOTE | 2020-08-18 19:26 | NUR ---
RECEIVED IN BEDROOM. RESTING IN BED WITH EYES OPEN. CALM AND COOPERATIVE WITH CARE AND ASSESSMENT. NO SIGNS OF AGGGRESSION. REDIRECT AND REORIENT NEEDED. CONTINUES TO REST QUIETLY IN BEDROOM. CONTINUE PLAN OF CARE.
[2020-08-18 19:30] VITALS: BP 133/72
--- NOTE | 2020-08-19 00:24 | NUR ---
DELUSIONAL. THINKING PEOPLE ARE DOING THINGS TO TRY TO HURT HER. SEEING UNSEEN PERSONS. STAED SHE WANTS TO BE SOMEWHERE SAFE. REINFORCED SHE WAS IN A SAFE PLACE AND I WOULD BE WITH HER ALL NIGHT.
--- NOTE | 2020-08-19 08:45 | NUR ---
RECEIVED IN PATIENT ROOM. WANDERING AROUND. CALM AND COOPERATIVE WITH CARE AND ASSESSMENT. HALLUCINATING THAT PEOPLE KEEP COMING INTO HER ROOM AND TRYING TO HURT HER. REDIRECT AND REORIENT NEEDED. EATING BREAKFAST AT THIS TIME. CONTINUE PLAN OF CARE.
--- NOTE | 2020-08-19 09:00 | NUR ---
Nutrition Reassessment/Follow-up: PO intake improving; ate 100% of meals yesterday. Diet: Regular, Ensure TID PO intake: 75% avg x 9 meals Wt: 166# (08/16); 170# (08/12) Last BM: 08/18 No new labs Meds noted: Linzess, Colace -Nutrition needs unchanged. -Encourage PO intake and honor food preferences within diet restrictions. -Monitor wt. -RD will follow up within 7 days.
[2020-08-19 09:19] VITALS: BP 119/64
--- NOTE | 2020-08-19 13:46 | PN ---
PATIENT:SHERI DILL MEDICAL RECORD: [id number] LOCATION:[facility] ADMISSION DATE: 08/11/20 PROGRESS NOTE DATE OF SERVICE: 08/18/2020 SUBJECTIVE: The patient's case was discussed with staff. She has no new complaint. OBJECTIVE: The patient is withdrawn, but cooperative. She is taking her medications and sleeping and eating well. ASSESSMENT: Dementia. PLAN: Current medicines have been reviewed and will be maintained. Prognosis is guarded. TRANSINT:[id number] Voice Confirmation ID: [id number] DOCUMENT ID: [id number] LEN MATUTE MD at 1346 CC: [id number] DICTATION DATE: 08/18/20 1557 REEFER TRUCK DRIVER: 08/18/20 2216 ADM IN [address] [id number] [place] [address]
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
[2020-08-19 21:30] VITALS: BP 109/51
--- NOTE | 2020-08-19 22:53 | NUR ---
B)RECEIVED PATIENT AWAKE AND LYING IN BED. ALERT AND ORIENTED X3. PT IS SUSPICIOUS AND PARANOID BELIEVING PEOPLE ARE OUT TO GET HER. BECOMES ANNOYED AND FRUSTRATED WHEN SHE HEARS THE OTHER PATIENTS TALKING OUTSIDE OF HER ROOM. WILL ASK SOMEONE IF THEY WILL PLEASE LEAVE HER ROOM IF THEY ARE STANDING IN THE DOOR AND GIVE HER SOME PRIVACY. DOES NOT INTERACT WITH PEERS AND WILL ONLY INTERACT WITH SOME STAFF. ISOLATIVE AND WITHDRAWN. I)ADMINISTER MEDS AND MONITOR COMPLIANCE. REDIRECT FOR PARANOID AND SUSPICIOUS BEHAVIORS. R)MED COMPLIANT. REMAINS SUSPICIOUS AND PARANOID AND WITHDRAWS MORE STAYING IN HER UNLESS SHE COMES TO THE NURSE'S STATION WITH COMPLAINTS OF DELUSIONAL THOUGHTS. 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 P)CONTINUE POC AND PROVIDE SAFE ENVIRONMENT.
[2020-08-20 08:00] VITALS: BP 117/47
--- NOTE | 2020-08-20 08:41 | NUR ---
Patient c/o'd of a "headache" like "pressure" request something for a BRANDT. Tylenol 500 mg given PO.
--- NOTE | 2020-08-20 10:58 | PN ---
PATIENT:SHERI DILL MEDICAL RECORD: [id number] LOCATION:[facility] ADMISSION DATE: 08/11/20 PROGRESS NOTE DATE OF SERVICE: 08/19/2020 SUBJECTIVE: The patient's case was discussed with staff. She has no new complaint. OBJECTIVE: The patient is eating and sleeping reasonably well. Unfortunately, she is delusional and seeing people in her room. ASSESSMENT: Dementia. PLAN: I am going to treat this symptom with a low dose of Risperdal. She will be monitored for clinical changes associated with its use. TRANSINT:[id number] Voice Confirmation ID: [id number] DOCUMENT ID: [id number] LEN MATUTE MD at 1058 CC: [id number] DICTATION DATE: 08/19/20 1527 SLICING MACHINE TENDER: 08/19/20 1531 ADM IN [facility] [address] [id number]
--- NOTE | 2020-08-20 12:32 | NUR ---
PT VERY CONFUSED WITH SEVERE SHORT TERM MEMORY LOSS. PT REQUIRES FREQUENT REDIRCTION WITH NO EVIDENCE OF RETAINING. MEDICATIONS GIVEN ORDERED. NO AGGRESSION NOTED. FALL PRECAUTIONS IN PLACE. WILL CONTINUE TO MONITOR AND CONTINUE WITH PLAN OF CARE.
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
[2020-08-20 20:07] VITALS: BP 161/72
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
--- NOTE | 2020-08-21 16:38 | NUR ---
Rec'd patient in her room. She is A/O times 1 to person. She is med compliant and takes her meds whole. She has demonstrated aggression with staff and she will come up to the nurses desk and wanna "privately" talk to the nurse and then she will tell them stories about her patient neighbors that they wanna "kill her" "they don't like her". Staff attempts to redirect and offer postive feedback and encourage her to stay out of her room and socialize with other patients. She has 2 meal trays up in her window sill.
[2020-08-21 20:00] VITALS: BP 122/55
[2020-08-22 08:00] VITALS: BP 148/55
--- NOTE | 2020-08-22 11:44 | NUR ---
The patient is bizarre in behavior. MHT trying to take her blood pressure, but the patient demanded that the cuff be switched from the tubing going to the bottome to the top. She says "it hurts the other way." She has come out of her room and staff ask her if she needs something and she says "I know where I am going, I know the way." But then the patient goes back to her room. She is not happy if she is redirected. Staff have to ensure that the doors are locked as she will walk into areas she is not supposed to be. She complains about staff to other patients and staff. She ambulates, toilets, and feeds herself. Provide prescribed meds. The patient is compliant with meds. Continue POC.
[2020-08-22 20:00] VITALS: BP 144/43
--- NOTE | 2020-08-22 23:02 | NUR ---
RECEIVED PATIENT ON UNIT, SHE IS NOT BEING AGGRESSIVE, SHE IS COOPERATIVE. SHE HAS A DISCOMFORTING GLARE, SHE DOESN'T SEEM TO FULLY TRUST STAFF. COMPLIANT WITH MEDS. CAN MAKE HER NEEDS KNOWN.
[2020-08-23 12:21] VITALS: BP 105/57
--- NOTE | 2020-08-23 17:26 | NUR ---
RECEIVED IN PATIENT ROOM. SITTING ON SIDE OF BED. CALM AND COOPERATIVE WITH CARE AND ASSESSMENT. PATIENT IS PARANOID AND ACCUSING OTHER PATIENTS OF HIDING DRUGS IN HALLWAY SIDE RAILS AND DEALING DRUGS. TELLING STAFF TO BE QUIET BECAUSE THEY MIGHT HAVE GUNS AND WILL KILL HER. REDIRECT AND REORIENT NEEDED. WAITING FOR DINNER TRAY TO ARRIVE AT THIS TIME. CONTINUE PLAN OF CARE.
--- NOTE | 2020-08-23 20:25 | NUR ---
RECEIVED IN HALLWAY. SITTING WITH A PEERS SOCIALIZING. CALM AND COOPERATIVE WITH CARE AND ASSESSMENT. NO SIGNS OF AGGRESSION. REDIRECT AND REORIENT NEEDED. CONTINUES TO SIT CALMLY IN HALLWAY SOCIALIZING WITH A PEERS. CONTINUE PLAN OF CARE.
[2020-08-23 20:47] VITALS: BP 159/74
--- NOTE | 2020-08-24 15:12 | PN ---
PATIENT:SHERI DILL MEDICAL RECORD: [id number] LOCATION:[facility] ADMISSION DATE: 08/11/20 PROGRESS NOTE DATE OF SERVICE: 08/20/2020 SUBJECTIVE: The patient's case was discussed with staff. She has no new complaint. OBJECTIVE: The patient is in good behavioral control and is eating and sleeping well. She has been taking her medications. Unfortunately, she has been significantly agitated about someone trying to hurt her at night. This seems to be a delusion. I did start her on Risperdal yesterday and will maintain that dose today. TRANSINT:[id number] Voice Confirmation ID: [id number] DOCUMENT ID: [id number] LNE MATUTE MD at 1512 CC: [id number] DICTATION DATE: 08/20/20 1636 POTATO SEED CUTTER: 08/20/20 1656 ADM IN [facility] [address] [place] [address]
--- NOTE | 2020-08-24 17:30 | NUR ---
RECEIVED IN PATIENT ROOM. SITTING ON SIDE OF BED. CALM AND COOPERATIVE WITH CARE AND ASSESSMENT. DELUSIONAL AND PARANOID. INTRUSIVE AT TIMES. REDIRECT AND REORIENT NEEDED. EATING DINNER AT THIS TIME. CONTINUE PLAN OF CARE.
--- NOTE | 2020-08-24 19:47 | NUR ---
RECEIVED IN HALLWAY OUTSIDE OF NURSES STAION. SOCAILIZING WITH PEERS. CALM AND COOPERATIVE WITH CARE AND ASSESSMENT. NO SIGNS OF AGGRESSION. REDIRECT AND REORIENT NEEDED. CONTINUES TO SOCAILIZE WITH PEERS. CONTINUE PLAN OF CARE.
[2020-08-24 20:17] VITALS: BP 147/79
[2020-08-25 08:00] VITALS: BP 115/61
--- NOTE | 2020-08-25 14:08 | PN ---
PATIENT:SHERI DILL MEDICAL RECORD: [id number] LOCATION:[facility] ADMISSION DATE: 08/11/20 PROGRESS NOTE DATE OF SERVICE: 08/24/2020 SUBJECTIVE: The patient's case was discussed with staff. She has no new complaint. OBJECTIVE: The patient is in good behavioral control. She has poor insight about her situation. ASSESSMENT: Dementia. PLAN: The patient was quite paranoid today. She was hiding in the gabriel saying that a piece of paper on the floor was cocaine and that there is some sort of drug dealing going on here and the people are going to come in with guns and start shooting at us. It does not make much sense, but it was very real and frightening to her. At this point, she is taking an antipsychotic and an antidepressant along with her other medicines and I am going to maintain them today and just try to redirect her with regard to this frightening delusion. TRANSINT:[id number] Voice Confirmation ID: [id number] DOCUMENT ID: [id number] LEN MATUTE MD at 1408 CC: [id number] DICTATION DATE: 08/24/20 1559 FABRIC DESIGNER: 08/24/20 2309 ADM IN [place] [id number] [place] [address]
--- NOTE | 2020-08-25 17:43 | NUR ---
Received patient in bed with eyes open. Awake and alert x2. Calm and cooperative with assessment at this time. Prescribed medications provided as ordered. Med compliant. Patient is paranoid at times. Redirect and reorient as needed. Will continue plan of care.
[2020-08-25 20:00] VITALS: BP 127/66
--- NOTE | 2020-08-25 20:12 | NUR ---
RECEIVED IN BEDROOM. RESTING QUIETLY IN BED WITH EYES OPEN. CALM AND COOPERATIVE WITH CARE AND ASSESSMENT. NO SIGNS OF AGGRESSION. REDIRECT AND REORIENT NEEDED. CONTINUES TO SIT QUIETLY IN HER ROOM. CONTINUE PLAN OF CARE.
[2020-08-26 07:59] VITALS: BP 141/69
--- NOTE | 2020-08-26 08:27 | PN ---
PATIENT:SHERI DILL MEDICAL RECORD: [id number] LOCATION:[facility] ADMISSION DATE: 08/11/20 PROGRESS NOTE DATE OF SERVICE: 08/25/2020 SUBJECTIVE: The patient's case was discussed with staff. She has no new complaint. OBJECTIVE: The patient is somewhat paranoid and only oriented to person, but she is not talking about people coming to kill her or they are being drug dealers here as she was yesterday. ASSESSMENT: Dementia. PLAN: Current medicines have been reviewed. I am going to reduce her scheduled Ativan to twice daily. She will be monitored for clinical changes associated with that. Her long-term prognosis is guarded. TRANSINT:[id number] Voice Confirmation ID: [id number] DOCUMENT ID: [id number] LEN MATUTE MD at 0827 CC: [id number] DICTATION DATE: 08/25/20 1541 COMMERCIAL LINES ACCOUNT EXECUTIVE: 08/25/20 2306 ADM IN [place] [id number] [place] [address]
--- NOTE | 2020-08-26 13:39 | NUR ---
Nutrition Re-Assessment Diet: Regular + Ensure PO intake: ~58% average x last 8 meals (varied -100%) Last BM: 08/21/20 Wt: 168.6# (08/23/20); Admit Wt: 170# (08/12/20) Meds noted: linzess. No new chem labs. Estimated nutrition needs:1200-1450kcal (25-30kcal/kg IBW), 48-57gms protein (1-1.2gms/kg), 1925-2300mL fluid (or per MD) Nutrition diagnosis: Inadequate energy intake r/t decreased appetite advanced age vs mental status AEB PO intake <65% average x last 9 meals. Goals: -PO intake =/>65% meals and snacks (not meeting) -Meet fluid needs (progressing) -Stable weight DHS stay (progressing) Recommendations: -Continue current diet and oral nutrition supplements. -Continue to encourage PO intake at meal times. -Continue bowel regimen to promote BM regularity and hopefully help increase appetite. -RD will continue to monitor PO intake and wt trend. -RD will follow-up within 7 days.
--- NOTE | 2020-08-26 17:59 | NUR ---
Patients daughter called and after code verification verified, She ask if we had noticed a "little decline" in her mother? We reviewed her meds together and questions answered. She said she was afraid of another possible DX of multiple personalities or Schizophrenia or something else? The daughter just wanted to talk about her mother and obtain reassurance. She doesn't feel that her mother is ready to come home now. She states for the staff to just keep her posted and informed on her mothers changes.
[2020-08-26 20:00] VITALS: BP 124/46
--- NOTE | 2020-08-27 02:11 | NUR ---
RECEIVED PATIENT IN HER ROOM, STAYING TO HERSELF, COMPLIANT WITH MEDS, SHE ALWAYS SEEMS NOT TO "TRUST" STAFF. CAN MAKE ALL OF HER NEEDS KNOWN. WILL FOLLOW POC
--- NOTE | 2020-08-27 08:54 | PN ---
PATIENT:SHERI DILL MEDICAL RECORD: [id number] LOCATION:[facility] ADMISSION DATE: 08/11/20 PROGRESS NOTE DATE OF SERVICE: 08/26/2020 SUBJECTIVE: The patient's case was discussed with staff. She has no new complaint. OBJECTIVE: The patient is in good behavioral control with poor insight about her situation. She tolerates her medicines well. ASSESSMENT: Dementia. PLAN: The patient has not been hallucinating today, although she has been wandering, but has been reasonably redirectable. The Ativan that she was started on on a scheduled basis yesterday seems to have been helpful and I am going to reduce the scheduled dose of Risperdal slightly. TRANSINT:[id number] Voice Confirmation ID: [id number] DOCUMENT ID: [id number] LEN MATUTE MD at 0854 CC: [id number] DICTATION DATE: 08/26/20 170 DISTRICT SALES LEADER: 08/27/20 0120 ADM IN [place] [id number] [place] [id number]
[2020-08-27 10:14] VITALS: BP 130/80
--- NOTE | 2020-08-27 14:20 | NUR ---
PT SITTING WITH GROUP AT THIS TIME. PT IS ALERT TO SELF ONLY. CONFUSION NOTED. PT CONTS TO HAVE PARANOID BEHAVIORS NOTED. PT IS COMPLIANT WITH MEDS, VITALS AND ASSESSMENTS NOTED. PT CAN MAKE NEEDS KNOWN. NO C/O OF PAIN NOTED. WILL CONT PLAN OF CARE.
[2020-08-27 20:00] VITALS: BP 164/57
--- NOTE | 2020-08-28 03:07 | NUR ---
B) Patient is alert and oriented to person and place, paranoid at times, guarded behaviors, I) Administered scheduled medications as ordered, monitored for safety R) Mediation compliant, pleasant and friendly toward staff and peers, P) Continue plan of care.
[2020-08-28 11:37] VITALS: BP 114/82
--- NOTE | 2020-08-28 13:32 | NUR ---
PT SITTING AND SOCIALIZING WITH OTHER PTS AT THIS TIME. PT IS ALERT TO SELF ONLY. PT IS CONFUSED. REDIRECT INTRUSIVE BEHAVIORS NOTED. PT IS EASY TO REDIRECT. AMBULATES. MAKES NEEDS KNOWN. COMPLIANT WITH MEDS, VITALS AND ASSESSMENTS. NO C/O OF PAIN NOTED. WILL CONT PLAN OF CARE.
--- NOTE | 2020-08-28 15:41 | NUR ---
RESTING QUIETLY IN BED AT THIS TIME.C/O HEADACHE EARLIER AND RECEIVED TYLENOL WITH GOOD RESPONSE.IS ORIENTED X3.GUARDED BEHAVIOR OBSERVED AT TIMES.DOES SOCIALIZE WITH PEERS,ESPECIALLY WITH MALE PEER.IS COMPLIANT WITH MEDS AND STAFF.AMBULATORY.NOO AGGRESSION OBSEVED.WILL CONTINUE WITH CURRENT PLAN OF CARE,MONITOR FOR CHANGES AND SAFETY.
--- NOTE | 2020-08-28 18:45 | NUR ---
pt daughter called ozzy hinkle. she stated she wanted to know how she was doing. she called or when her daughters called she was saying weird things." nurse stated a medication change was done for her night time meds. she stated she cant take her home in the condition she is in but she loves her mother and wants her home. she stated she would wait to talk to her after her procedure cause she stresses her."nurse verbalizied understanding of reason. nurse would pass along message to pt that she loved her and she called.
[2020-08-28 20:00] VITALS: BP 111/44
--- NOTE | 2020-08-28 22:38 | NUR ---
PT IS ALERT AND ORIENTED TO SELF PLACE AND SITUATION. CALM AND COOPERATIVE WITH STAFF. COMPLIANT WITH ALL MEDICATIONS. SOCIAL WITH PEERS IN SHORT BURSTS. DENIES ANY NEEDS AT THIS TIME.
--- NOTE | 2020-08-29 07:35 | NUR ---
The patient is awake, she is confused. She said "ok, when can i leave?" She has no idea she is in a hospital. Explained to her that the is the one to d/c her and she has not been discharged yet. She said "Ok" At this time she is sitting next to one of the male patients and she tries to converse with him. She has poor insight into her situation she has not shown aggression or inappropriate behavior at this time, she can be demanding and staff splitting. Will monitor for behaviors and mood. She ambulates, toilets, and feeds herself. Provide prescribed meds. 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 Continue POC.
[2020-08-29 08:14] VITALS: BP 123/48
[2020-08-29 20:00] VITALS: BP 133/46
--- NOTE | 2020-08-29 23:08 | NUR ---
PT IS ALERT AND ORIENTED TO SELF AND PLACE. SHE HAS GATHERED ALL HER BELONGINGS IN HER ROOM INTO PAPER SACKS AND DECIDED THAT SHE IS TO LEAVE MONDAY. NO PARANOIA NOTED THIS EVENING. CONFUSED BUT EASY TO REDIRECT. ABLE TO VOICE NEEDS AND WANTS. COMPLIANT WITH ALL MEDICATIONS.
--- NOTE | 2020-08-30 07:30 | NUR ---
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 Sonya spoke to the patient and let her know that she always has something to live for, life changes, but there's still a lot to do. The patient is forgetful, she has a couple paper bags packed and says she is ready to go, she told nightshift she was packing because she is leaving Monday. She has poor insight into her situation, she has not been aggressive today. Provide prescribed meds. Continue POC.
[2020-08-30 09:00] VITALS: BP 114/69
--- NOTE | 2020-08-30 19:35 | NUR ---
RECEIVED IN HALLWAY. SITTING IN A CHAIR SOCIALIZING WITH PEERS. CALM AND COOPERATIVE WITH CARE AND ASSESSMENT. NO SIGNS OF AGGRESSION. REDIRECT AND REORIENT NEEDED. CONTINUES TO REST QUIETLY IN BED. CONTINUE PLAN OF CARE.
[2020-08-30 21:35] VITALS: BP 130/41
[2020-08-31 10:31] VITALS: BP 134/59
--- NOTE | 2020-08-31 13:41 | PN ---
PATIENT:SHERI DILL MEDICAL RECORD: [id number] [facility] ADMISSION DATE: 08/11/20 PROGRESS NOTE DATE OF SERVICE: 08/27/2020 SUBJECTIVE: The patient's case was discussed with staff. She has no new complaint. OBJECTIVE: The patient has been quite disruptive and at times seriously impaired because of psychotic symptoms. ASSESSMENT: Dementia. PLAN: Current medicines have been reviewed. Her long-term prognosis is guarded. TRANSINT:[id number] Voice Confirmation ID: [id number] DOCUMENT ID: [id number] LEN MATUTE MD at 1341 CC: [id number] DICTATION DATE: 08/27/202019 ASSOCIATE PROFESSOR OF PATHOLOGY: 08/27/20 2237 ADM IN [place] [id number] [place] [address]
--- NOTE | 2020-08-31 17:45 | NUR ---
RECEIVED IN PATIENT ROOM. SITTING ON SIDE OF BED. CALM AND COOPERATIVE WITH CARE AND ASSESSMENT. PATIENT WAS INAPPROPRIATLY TRYING TO STRADDLE ANOTHER MALE PATIENT. STAFF INTERVENED. REDIRECT AND REORIENT NEEDED. EATING DINNER AT THIS TIME. CONTINUE PLAN OF CARE.
--- NOTE | 2020-08-31 22:07 | NUR ---
RECEIVED IN BEDROOM. RESTING IN BED WITH EYES OPEN. CALM AND COOPERATIVE WITH CARE AND ASSESSMENT. NO SIGNS OF AGGRESSION. REDIRECT AND REORIENT NEEDED. RESTING QUIETLY IN BED WITH EYES CLOSED AT THIS TIME. CONTINUE PLAN OF CARE.
[2020-08-31 22:55] VITALS: BP 103/48
[2020-09-01 08:00] VITALS: BP 111/44
--- NOTE | 2020-09-01 13:17 | PN ---
PATIENT:SHERI DILL MEDICAL RECORD: [id number] LOCATION:[facility] ADMISSION DATE: 08/11/20 PROGRESS NOTE DATE OF SERVICE: 08/31/2020 SUBJECTIVE: The patient's case was discussed with staff. She has no new complaint. OBJECTIVE: The patient is in good behavioral control with poor insight about her situation. She has been sexually inappropriate with one of the male staff members in a way that was both suggested and vulgar. I have not asked her about this. I frankly do not think she would remember it. At this point, I have reviewed her medicines and do not think that this is something I am going to be able to address pharmacologically at this point. I will monitor her for clinical changes and discuss the situation with the treatment team tomorrow. TRANSINT:[id number] Voice Confirmation ID: [id number] DOCUMENT ID: [id number] LEN MATUTE MD at 1317 CC: [id number] DICTATION DATE: 08/31/20 1620 INSTRUCTIONAL INTERVENTIONIST: 08/31/20 1741 ADM IN [facility] [address] [place] [address]
--- NOTE | 2020-09-01 18:07 | NUR ---
RECEIVED IN PATIENT ROOM. SITTING ON SIDE OF BED. CALM AND COOPERATIVE WITH CARE AND ASSESSMENT. NO AGGRESSIVE BEHAVIOR. REDIRECT AND REORIENT NEEDED. EATING DINNER AT THIS TIME. CONTINUE PLAN OF CARE.
[2020-09-01 20:00] VITALS: BP 107/47
--- NOTE | 2020-09-01 21:21 | NUR ---
RECEIVED IN HALLWAY. STANDING AT NURSES STATION. REQUEST ITEMS FOR SLEEP TIME. CALM AND COOPERATIVE WITH CARE AND ASSESSMENT. NO SIGNS OF AGGRESSION. REDIRECT AND REORIENT NEEDED. RESTING IN BED WITH EYES CLOSED AT THIS TIME. CONTINUE PLAN OF CARE.
--- NOTE | 2020-09-02 08:34 | PN ---
PATIENT:SHERI DILL MEDICAL RECORD: [id number] LOCATION:[facility] ADMISSION DATE: 08/11/20 PROGRESS NOTE DATE OF SERVICE: 09/01/2020 SUBJECTIVE: The patient's case was discussed with staff. She has no new complaint. OBJECTIVE: The patient is in good behavioral control with poor insight about her situation. She tolerates her medicines well. ASSESSMENT: Dementia. PLAN: Brief supportive and educational interventions were made. Current medicines will be maintained. TRANSINT:[id number] Voice Confirmation ID: [id number] DOCUMENT ID: [id number] LEN MATUTE MD at 0834 CC: [id number] DICTATION DATE: 09/01/20 1631 OPHTHALMIC AIDE: 09/01/20 2316 ADM IN [place] [id number]
--- NOTE | 2020-09-02 12:30 | NUR ---
RECEIVED IN HALLWAY OUTSIDE OF NURSES STATION. SOCIALIZING WITH OTHER PATIENTS. CALM AND COOPERATIVE WITH CARE AND ASSESSMENT. NO AGGRESSIVE BEHAVIOR. REDIRECT AND REORIENT NEEDED. EATING LUNCH AT THIS TIME. CONTINUE PLAN OF CARE.
--- NOTE | 2020-09-02 14:58 | NUR ---
Nutrition Re-Assessment Diet: Regular + Ensure TID PO intake: ~85% average x last 9 meals Last BM: 08/31/20 Wt: 169# (08/30/20); Admit Wt: 170# (08/12/20) Meds noted: herons. No new chem labs. Estimated nutrition needs and nutrition diagnosis remain unchanged from initial nutrition assessment at this time. Meeting nutrition goals at this time. Recommendations/Interventions: -Recommend continue current diet. Will continue to honor food preferences. -RD will continue to monitor PO intake and wt trend. -RD will follow-up within 7 days.
[2020-09-02 20:00] VITALS: BP 139/45
--- NOTE | 2020-09-03 00:33 | NUR ---
PT IS ALERT AND ORIENTED TO SELF AND PLACE. RECEIVED IN HER ROOM. NO AGGRESSION NOTED. NO PARANOIA NOTED. COMPLIANT WITH ALL MEDICATIONS. COOPERATIVE WITH STAFF. EASY TO REDIRECT. MONITOR FOR SAFETY.
[2020-09-03 09:37] VITALS: BP 128/52
--- NOTE | 2020-09-03 11:23 | NUR ---
wire preparation worker spoke to patient's daughter, Snehal, about discharge planning. Patient will discharge September 10 and be picked up at 1230 by Snehal. Patient will follow up with [facility] on September 10 at 1230. Patient's pharmacy is [facility] on [facility].No other needs voiced at this time.
--- NOTE | 2020-09-03 11:59 | PN ---
PATIENT:SHERI DILL MEDICAL RECORD: [id number] LOCATION:[facility] ADMISSION DATE: 08/11/20 PROGRESS NOTE DATE OF SERVICE: 09/02/2020 SUBJECTIVE: The patient's case was discussed with staff. She has no new complaint. OBJECTIVE: The patient slept 8 hours last night and ate all of her meals yesterday. She is oriented to person and place and only partially to time. She has not been delusional about cocaine dealers and seems to be tolerating her medicines well. ASSESSMENT: Dementia. PLAN: Current medicines have been reviewed and will be maintained. I anticipate discharge soon. TRANSINT:[id number] Voice Confirmation ID: [id number] DOCUMENT ID: [id number] LEN MATUTE MD at 1159 CC: [id number] DICTATION DATE: 09/02/20 1655 FOOD SAFETY OFFICER: 09/02/20 2326 ADM IN [place] [id number] [place] [address]
--- NOTE | 2020-09-03 18:36 | NUR ---
pt sitting in chair and talking with peers. alert to person and place. cont to redirect and reorient. confusion noted. compliant with meds, vitals and assessments. no behaviors noted. will cont plan of care.
[2020-09-03] MEDS ORDERED: ATIVAN0.5 MG PO (18:47)
[2020-09-03] MEDS ORDERED: LINZESS145 MCG PO (18:48)
[2020-09-03] MEDS ORDERED: ZOLOFT50 MG PO (18:48)
[2020-09-03] MEDS ORDERED: RisperDAL PO (18:48)
[2020-09-03 20:00] VITALS: BP 144/58
--- NOTE | 2020-09-03 22:11 | NUR ---
RECEIVED PATIENT IN HALLWAY SITTING NEXT TO A MALE PATIENT AND BEING AFFECTIONATE (RUBBING ON HIS ARM). SHE WAS REDIRECTED. COMPLIANT WITH MEDS. CAN MAKE HER NEEDS KNOWN. WILL FOLLOW POC
--- NOTE | 2020-09-04 11:55 | NUR ---
PT DISCHARGED HOME THIS SHIFT WITH DAUGHTER AT THIS TIME. NURSE WENT OVER PAPERWORK AND MEDS AT THIS TIME. PT WAS HAPPY TO D/C. VERBALIZIED UNDERSTANDING OF MEDS AND D/C ORDERS. PT AMBULATED TO [facility].
[2020-09-04 14:13] VITALS: BP 135/69
--- NOTE | 2020-09-07 13:27 | PN ---
PATIENT:SHERI DILL MEDICAL RECORD: [id number] LOCATION:[facility] ADMISSION DATE: 08/11/20 PROGRESS NOTE DATE OF SERVICE: 09/03/2020 SUBJECTIVE: The patient's case was discussed with staff. She has no new complaint. OBJECTIVE: The patient is doing well. She is sleeping and eating well. She has been calm and cooperative. She still is only oriented to person and sometimes to place, but overall her condition and situation have improved. ASSESSMENT: Dementia. PLAN: The patient will be transitioned out of the hospital tomorrow. She is going to go home and be cared for by her family. TRANSINT:[id number] Voice Confirmation ID: [id number] DOCUMENT ID: [id number] LEN MATUTE MD at 1327 CC: [id number] DICTATION DATE: 09/03/20 1846 DIRECTOR PHYSICAL THERAPY: 09/03/20 2155 DIS IN 09/04/20 [place] [id number] [place] [address]
== END 2020-09-04 12:00 | disposition home or self-care (01) | DRG 57 ==
LOC: D.PSYCH 21:26
PROVIDERS: ADMIT Psychiatry & Neurology Psychiatry; ATTEND Psychiatry & Neurology Psychiatry
DX: G30.9 Alzheimer's disease, unspecified (principal); F02.81 Dementia in other diseases classified elsewhere, unspecified severity, with behavioral disturbance; I48.91 Unspecified atrial fibrillation; I10 Essential (primary) hypertension; J45.909 Unspecified asthma, uncomplicated; K59.01 Slow transit constipation; M17.10 Unilateral primary osteoarthritis, unspecified knee; N32.81 Overactive bladder; J30.9 Allergic rhinitis, unspecified; E03.9 Hypothyroidism, unspecified; E03.8 Other specified hypothyroidism; E06.3 Autoimmune thyroiditis; E78.5 Hyperlipidemia, unspecified